=== PATIENT | female | born 1960 | race Caucasian/White ===

== ENCOUNTER 2021-07-27 09:24 | Day surgery (SDC) | payer OTHER, SELFPAY ==
[~2021-07-27] VITALS: Ht 157.5 cm; Wt 74.8 kg
[2021-07-27] MEDS ORDERED: fentaNYL citrate 0.05 MG/ML VIAL ONE (13:47)
[2021-07-27] MEDS ORDERED: LIDOCAINE 2% 100 MG/5 ML UJET TP ONE ×2 (13:47→14:25)
[2021-07-27] MEDS ORDERED: MIDAZOLAM 5 MG/5 ML VIAL ONE (13:49)
[2021-07-27] MEDS ORDERED: MIDAZOLAM 2 MG/2 ML VIAL IVP ONE (14:25)
[2021-07-27] MEDS ORDERED: fentaNYL citrate 0.05 MG/ML VIAL IVP ONE (14:25)
== END 2021-07-27 15:25 | disposition home or self-care (01) ==
LOC: MDS 09:24 → MMU 09:24 → MDS 15:25
PROVIDERS: ATTEND Internal Medicine Gastroenterology
DX: Z12.11 Encounter for screening for malignant neoplasm of colon (principal); D12.3 Benign neoplasm of transverse colon; K57.30 Diverticulosis of large intestine without perforation or abscess without bleeding; K44.9 Diaphragmatic hernia without obstruction or gangrene; Z90.710 Acquired absence of both cervix and uterus; K21.00 Gastro-esophageal reflux disease with esophagitis, without bleeding; Z20.822 Contact with and (suspected) exposure to COVID-19; Z88.1 Allergy status to other antibiotic agents; Z79.899 Other long term (current) drug therapy
CPT/HCPCS: 43235; 45385; 87426; J2250; J3010

== ENCOUNTER 2022-11-05 11:28 | Emergency (ER) | payer OTHER ==
[~2022-11-05] VITALS: Ht 157.5 cm; Wt 73.5 kg
[2022-11-05 11:41] VITALS: BP 157/88
--- NOTE | 2022-11-05 12:00 | NUR ---
62/F WALKED IN C/O LEFT FOOT/ANKLE PAIN S/P FALL YESTERDAY. DENIES LOC OR TRAUMA TO HEAD. AAO4, AMBULATORY, VITALS STABLE. PMH: HTN, GALL BLADDER REMOVAL
[2022-11-05] MEDS ORDERED: ACETAMINOPHEN 325 MG TAB PO ONE (12:40)
[2022-11-05] MEDS ORDERED: IBUP-2213 PO (12:45)
[2022-11-05] MEDS ORDERED: ACET-10509 PO (12:45)
== END 2022-11-05 13:10 | disposition home or self-care (01) ==
LOC: MED 11:28
DX: S92.345A Nondisplaced fracture of fourth metatarsal bone, left foot, initial encounter for closed fracture (principal); I10 Essential (primary) hypertension; Z79.899 Other long term (current) drug therapy; Z90.49 Acquired absence of other specified parts of digestive tract; W18.30XA Fall on same level, unspecified, initial encounter; Y93.89 Activity, other specified; Y92.89 Other specified places as the place of occurrence of the external cause; Y99.8 Other external cause status
CPT/HCPCS: 29515; 73610; 73630; 99284